=== PATIENT | male | born 1935 | race Caucasian/White ===

== ENCOUNTER → 2016-06-24 08:14 | Outpatient (CLI) | payer MEDICARE, OTHER ==
[2015-04-12 08:52] VITALS: BMI 32.3
--- NOTE | ~2016-06-24 | EC ---
PATIENT:ED RIVAS DATE OF SERVICE: 06/24/16 SEX: M MEDICAL RECORD: [id number] DATE OF : 33 LOCATION:D.RT AGE OF PATIENT: 80 ADMISSION DATE: 06/24/16 REFERRING PHYSICIAN: INTERPRETING PHYSICIAN: CORKY SINCLAIR MD ECHOCARDIOGRAM REPORT ECHO CHARGES 4 ECHO COMPLETE CLINICAL DIAGNOSIS: PULMONARY HTN/HYPERLIPIDEMIA HX OF HTN ECHOCARDIOGRAPHIC MEASUREMENTS (adult normal given) AC root (d.<3.7cm) 3.5 LV Septum d (<1.2 cm> 1.5 Valve Excursion 2.2 LV Septum (systole) 1.8 Left Atria (s.<4.0cm> 1.4 LVPW d(<1.2cm) 4.2 RV (d.<2.3cm) 4.0 LVPW (sytole) 1.7 LV diastole(<5.6CM) 5.2 MV E-F(>70mm/sec) LV systole 3.0 LVOT Diameter 1.5 MV exc.(>10mm) 1.6 Est.ejection fraction (50-75%) Pericardial Effusion N DOPPLER: LVIT A 83.0 E 103 LA RVSP 60 LVOT 120 AOP1/2T Asc. Ao 145 RVOT 97 RA PA 133 AV Gradient Peak 8.44 AV Mean 4.21 AV Area 1.3 MV Gradient Peak 7.19 MV Mean 2.22 MV Area COMMENTS: Web Development Instructor: Brandi CEDEÑO Computer Laboratory Technician:Brandi Soto TAPE# PACS DATE OF SERVICE: 06/24/2016 FINDINGS: 1. Left ventricular chamber size is within normal limits. Left ventricular systolic function is normal. Overall ejection fraction estimated at 55%. 2. Left atrium is enlarged at 4.2 cm. Right atrium and right ventricle chamber sizes are mildly dilated. 3. Valvular structures have normal structure and motion. 4. Doppler interrogation reveals mild mitral regurgitation, moderate tricuspid regurgitation, no other valvular insufficiency or stenosis. Pulmonary systolic ECHOCARDIOGRAM REPORT [id number] ED RIVAS pressure is elevated estimated 60 mmHg. 5. No evidence of pericardial effusion or left ventricular thrombus. TRANSINT:[id number] Voice Confirmation ID: [id number] DOCUMENT ID: [id number] CORKY SINCLAIR MD CC: [id number] DICTATION DATE: 06/25/16 1037 SHANK SORTER: 06/26/16 0114 DEP CLI 06/24/16 [facility] [address] [place] [address]
[~2016-06-24 08:14] MED LIST: BAYER CHEWABLE81 MG PO; KLOR-CON M2020 MEQ PO; LOZOL1.25 MG PO; TENORMIN50 MG PO; VITAMIN D2000 UNIT PO; ZYLOPRIM300 MG PO; ZYRTEC10 MG PO
== END | disposition home or self-care (01) ==
LOC: D.RT 08:14
DX: E78.5 Hyperlipidemia, unspecified (principal)

== ENCOUNTER → 2017-03-23 13:39 | Outpatient (CLI) | payer MEDICARE, OTHER ==
[2015-04-12 08:52] VITALS: BMI 32.3
== END | disposition home or self-care (01) ==
LOC: D.RAD 09:00
DX: J47.9 Bronchiectasis, uncomplicated (principal)

== ENCOUNTER → 2017-07-08 09:12 | Outpatient (CLI) | payer MEDICARE, OTHER ==
[2015-04-12 08:52] VITALS: BMI 32.3
== END | disposition home or self-care (01) ==
LOC: D.ECHO 09:12 → D.RT 11:00
DX: J84.10 Pulmonary fibrosis, unspecified (principal); I27.20 Pulmonary hypertension, unspecified

== ENCOUNTER → 2018-02-10 17:25 | Outpatient (CLI) | payer MEDICARE, OTHER ==
[2015-04-12 08:52] VITALS: BMI 32.3
[2018-02-10 18:09] LABS: INR 1.1 (0.85-1.17); PROTIME 13.7 SECONDS (11.6-15.0)
[2018-02-10 18:10] LABS: APTT 41.7 SECONDS (22.8-39.4)
[2018-02-10 18:20] LABS: CHOL - HDL RATIO 4.4 ratio (2.3-4.9); LDL-HDL RATIO 2.7 ratio (1.5-3.5)
== END | disposition home or self-care (01) ==
LOC: D.LABREF 17:25
PROVIDERS: Internal Medicine Pulmonary Disease
DX: J84.10 Pulmonary fibrosis, unspecified (principal)

== ENCOUNTER → 2018-06-09 09:09 | Outpatient (CLI) | payer MEDICARE, OTHER ==
[2015-04-12 08:52] VITALS: BMI 32.3
[2018-06-10 10:18] LABS: HEPATITIS C ANTIBODY <0.1 (0.0-0.9)
== END | disposition home or self-care (01) ==
LOC: D.LAB 09:09 → D.RAD 10:00
PROVIDERS: ATTEND Internal Medicine Pulmonary Disease
DX: J84.112 Idiopathic pulmonary fibrosis (principal)

== ENCOUNTER → 2018-09-20 10:00 | Outpatient (CLI) | payer MEDICARE, OTHER ==
[2015-04-12 08:52] VITALS: BMI 32.3
[2018-09-20 10:53] LABS: ALBUMIN 3.8 g/dL (3.4-5.0); BILIRUBIN - DIRECT 0.26 mg/dL (0.00-0.30); BILIRUBIN - INDIRECT 1.08 mg/dL (0.00-1.00); BILIRUBIN - TOTAL 1.34 mg/dL (0.2-1.3); PROTEIN - SERUM 6.8 g/dL (6.4-8.2)
== END | disposition home or self-care (01) ==
LOC: D.LAB 10:00
PROVIDERS: ATTEND Internal Medicine Pulmonary Disease
DX: J84.112 Idiopathic pulmonary fibrosis (principal)

== ENCOUNTER → 2018-10-11 11:09 | Outpatient (CLI) | payer MEDICARE, OTHER ==
[2015-04-12 08:52] VITALS: BMI 32.3
[2018-10-11 12:25] LABS: ALBUMIN 3.4 g/dL (3.4-5.0); BILIRUBIN - DIRECT 0.28 mg/dL (0.00-0.30); BILIRUBIN - INDIRECT 0.96 mg/dL (0.00-1.00); BILIRUBIN - TOTAL 1.24 mg/dL (0.2-1.3); PROTEIN - SERUM 6.5 g/dL (6.4-8.2)
== END | disposition home or self-care (01) ==
LOC: D.LAB 11:09
PROVIDERS: ATTEND Internal Medicine Pulmonary Disease
DX: J84.112 Idiopathic pulmonary fibrosis (principal)

== ENCOUNTER → 2018-10-28 09:36 | Outpatient (CLI) | payer MEDICARE, OTHER ==
[2015-04-12 08:52] VITALS: BMI 32.3
[2018-10-28 10:47] LABS: ALBUMIN 3.5 g/dL (3.4-5.0); BILIRUBIN - DIRECT 0.26 mg/dL (0.00-0.30); BILIRUBIN - INDIRECT 1.2 mg/dL (0.00-1.00); BILIRUBIN - TOTAL 1.46 mg/dL (0.2-1.3)
== END | disposition home or self-care (01) ==
LOC: D.ECHO 09:36
PROVIDERS: ATTEND Internal Medicine Pulmonary Disease
DX: I27.20 Pulmonary hypertension, unspecified (principal); J84.112 Idiopathic pulmonary fibrosis

== ENCOUNTER → 2018-11-29 12:56 | Outpatient (CLI) | payer MEDICARE, OTHER ==
[2015-04-12 08:52] VITALS: BMI 32.3
[2018-11-29 13:41] LABS: ALBUMIN 3.5 g/dL (3.4-5.0); BILIRUBIN - DIRECT 0.24 mg/dL (0.00-0.30); BILIRUBIN - INDIRECT 0.89 mg/dL (0.00-1.00); BILIRUBIN - TOTAL 1.13 mg/dL (0.2-1.3); PROTEIN - SERUM 6.8 g/dL (6.4-8.2)
== END | disposition home or self-care (01) ==
LOC: D.LAB 12:56
PROVIDERS: ATTEND Internal Medicine Pulmonary Disease
DX: J84.112 Idiopathic pulmonary fibrosis (principal)

== ENCOUNTER → 2019-01-19 11:40 | Outpatient (CLI) | payer MEDICARE, OTHER ==
[2015-04-12 08:52] VITALS: BMI 32.3
[~2019-01-19 11:40] MED LIST changes: +AZELASTINE137 MCG/0.; +BETAPACE 80 MG80 MG PO; +FLUTICASONE PRO16 GM NASAL; +PEPCID AC20 MG PO; +PROZAC20 MG PO; +ROBITUSSIN DM 110 ML PO; +SINGULAIR10 MG PO
[2019-01-19 12:17] LABS: ALBUMIN 3.6 g/dL (3.4-5.0); BILIRUBIN - DIRECT 0.32 mg/dL (0.00-0.30); BILIRUBIN - INDIRECT 0.84 mg/dL (0.00-1.00); BILIRUBIN - TOTAL 1.16 mg/dL (0.2-1.3)
== END | disposition home or self-care (01) ==
LOC: D.LAB 11:40
PROVIDERS: ATTEND Internal Medicine Pulmonary Disease
DX: J84.112 Idiopathic pulmonary fibrosis (principal)

== ENCOUNTER 2019-02-15 13:29 | Inpatient (IN) | payer MEDICARE, OTHER ==
[~2019-02-15] VITALS: Ht 170.2 cm; Wt 90.7 kg
[~2019-02-15 13:29] MED LIST changes: -AZELASTINE137 MCG/0.; -BETAPACE 80 MG80 MG PO; -FLUTICASONE PRO16 GM NASAL; -PEPCID AC20 MG PO; -PROZAC20 MG PO; -ROBITUSSIN DM 110 ML PO; -SINGULAIR10 MG PO
[2019-02-15 14:45] LABS: APPEARANCE CLEAR (CLEAR); BILIRUBIN NEGATIVE (NEGATIVE); COLOR YELLOW (YELLOW); GLUCOSE NEGATIVE (NEGATIVE); KETONE NEGATIVE (NEGATIVE); NITRITE NEGATIVE (NEGATIVE); PROTEIN TRACE mg/dL (NEGATIVE); SPECIFIC GRAVITY 1.015 (1.005-1.020); UROBILINOGEN NORMAL (NORMAL)
[2019-02-15 14:47] LABS: BACTERIA FEW /hpf (NEGATIVE); EPITHELIAL CELLS OCC /hpf (0-5); RED CELLS - URINE RARE /hpf (0-5); WHITE CELLS - URINE NSEEN /hpf (NEGATIVE)
[2019-02-15 14:49] LABS: BASOPHILS 0.3 % (0-2); EOSINOPHILS 2.5 % (0-7); HEMATOCRIT 47.9 % (42.0-54.0); HEMOGLOBIN 16.2 g/dL (13.5-17.5); IMMATURE GRANULOCYTES 0.2 % (0-5); LYMPHOCYTES 12.8 % (15-50); MCHC 33.8 g/dL (31.0-37.0); MCV 100.6 fL (80.0-100.0); MEAN PLATELET VOLUME 11.7 fL (7.4-10.4); MONOCYTES 7.8 % (2-11); NEUTROPHILS 76.4 % (40-80); PLATELET COUNT 127 10x3/uL (130-400); RBC 4.76 10x6/uL (4.20-6.10); RDW 13.2 % (11.5-14.5); WBC 11.3 10x3/uL (4.8-10.8)
[2019-02-15 14:59] LABS: APTT 38.1 SECONDS (22.8-39.4); INR 1.49 (0.85-1.17); PROTIME 17.4 SECONDS (11.6-15.0)
[2019-02-15 15:11] LABS: CALC OSMOLALITY 295 mosm/kg (275-300); CARBON DIOXIDE 25.3 mmol/L (21.0-32.0); CHLORIDE - SERUM 109 mmol/L (98-107); CREATININE - SERUM 1.4 mg/dL (0.6-1.3); GLUCOSE 128 mg/dL (74-106); POTASSIUM - SERUM 3.7 mmol/L (3.5-5.1); SODIUM 146 mmol/L (136-145); UREA NITROGEN 22 mg/dL (7-18); eGFR NON AFRICAN AMERICAN 51 mL/min (90-120)
[2019-02-15 15:26] LABS: ALBUMIN 3.4 g/dL (3.4-5.0); ALKALINE PHOSPHATASE 80 U/L (46-116); ALT (SGPT) 34 U/L (10-68); BILIRUBIN - TOTAL 1.34 mg/dL (0.2-1.3); CKMB 0.9 U/L (0.0-3.6); CREATINE KINASE 48 UL (21-232); PROTEIN - SERUM 6.9 g/dL (6.4-8.2); TROPONIN-I < 0.017 ng/mL (0.000-0.060)
--- NOTE | 2019-02-15 16:23 | NUR ---
WOUND CLEANSED WITH WOUND ABSTRACT MANAGER. PLACED BANDAID OVER OPEN SCRAP TO RIGHT SIDE OF FACE.
--- NOTE | 2019-02-15 16:30 | NUR ---
RECEIVED TO ROOM 2225 VIA WC FROM ER. A/O X3. AT BEDSIDE. SKIN INTACT WITHOUT REDNESS EXCEPT ABRASION TO RIGHT SIDE OF FACE. DENIES NEEDS.
[2019-02-15] MEDS ORDERED: PEPCID AC20 MG PO (16:45)
[2019-02-15] MEDS ORDERED: BETAPACE 80 MG80 MG PO (16:46)
[2019-02-15] MEDS ORDERED: PROZAC20 MG PO (16:47)
[2019-02-15] MEDS ORDERED: FLUTICASONE PRO16 GM NASAL (16:48)
[2019-02-15] MEDS ORDERED: AZELASTINE137 MCG/0. (16:48)
[2019-02-15] MEDS ORDERED: SINGULAIR10 MG PO (16:49)
[2019-02-15] MEDS ORDERED: ROBITUSSIN DM 110 ML PO (16:49)
--- NOTE | 2019-02-15 17:59 | MORECARE ---
CASE MANAGEMENT DISCHARGE SUMMARY PATIENT: ED CLARK UNIT: [id number] ADM DATE: 02/15/19 AGE: 83 : 34 SEX: M ROOM/BED: D.2225 AUTHOR: CUONG,DOC PHYSICIAN: REFERRING PHYSICIAN: ISIDRO MAYBERRY MD DATE OF SERVICE: 02/15/19 Discharge Plan Patient Name: ED CLARK Facility: [facility]:[place] : 1935 Planned Disposition: Home Anticipated Discharge Date: 02/17/19 Discharge Date: Expected LOS: 2 Initial Reviewer: [email or web address] Initial Review Date: 02/15/2019 Generated: 02/15/19 6:59 pm DCP- Discharge Planning Updated by [email or web address]: Niki Antonio on 02/15/19 4:[address] DC PLAN: Return home with . ANTICIPATED DC NEEDS: Denied need for hh or other services. CM met with patient to complete initial dc planning assessment. CM educated patient on the CM role and verbal consent given by patient to complete assessment. CM verified patient's address, phone number, and emergency contact phone numbers. Patient lives at home with his . At discharge patient plans to return home and feels this is a safe discharge. He reports he is independent in his care at home. CM discussed availability of home health, rehab services, and medical equipment. Patient denied known discharge needs at this time. Transportation provider at discharge will be his . CM will continue to follow and will assist as needed with dc plans/needs. Niki Antonio RN, [facility] DCPIA - Discharge Planning Initial Assessment Updated by [email or web address]: Niki Antonio on 02/15/19 5:55 pm * Is the patient Alert and Oriented? Yes * How many steps to enter\exit or inside your home? None * PCP Dr. Jacques * [facility] * Preadmission Environment Home with Family * ADLs Independent * Equipment CPAP Oxygen * Other Equipment Oxygen with portability. Wears PRN. DME provider is [facility] * List name and contact numbers for known caregivers / representatives who currently or will assist patient after discharge: Lyndsay Clark - - [phone] * Verbal permission to speak to the caregivers and representatives has been obtained from the patient. Yes * Community resources currently utilized None * Additional services required to return to the preadmission environment? No * Can the patient safely return to the preadmission environment? Yes * Has this patient been hospitalized within the prior 30 days at any hospital? No Patient Name: ED CLARK Page [id number] at 1759 All edits/amendments must be made on the electronic document DICTATION DATE: 02/15/191757 PRODUCTION SCHEDULER: LUIS ENRIQUE 02/15/191757 RPT#: [id number] DC DATE: STATUS: ADM IN [facility] [address] [place] [address] END OF REPORT
--- NOTE | 2019-02-15 18:32 | NUR ---
REFUSED SUPPER TRAY. DOESN'T LIKE PASTA. REMAINS AT BEDSIDE. DENIES NEEDS. NO CHANGES NOTED.
--- NOTE | 2019-02-15 20:00 | NUR ---
ASSESSMENT PER FLOWSHEET. SALINE LOCK TO LEFT HAND. AT BEDSIDE. ALERT/ORIENTED X4 RIDER. DURAL MECHANIC EQUAL. SPEECH CLEAR. AND APPROPRIATE. ABRASION TO RT SIDE OF FACE. WITH LARGE BANDAIDE IN PLACE. DENIES NEEDS SR UP X2 CALL LIGHT WITHIN REACH.
[2019-02-15 21:15] VITALS: BP 131/67
--- NOTE | 2019-02-15 22:00 | NUR ---
AL SOLIS ON FLOOR INFORMED HIM OF PATIENT'S ADMISSION.AND HIS HOME MEDS.
--- NOTE | 2019-02-16 | NUR ---
REMAINS ALERT/ORIENTED X4 O2 ON 2L/M PER NC. ARACELIS MAT IN USE WITH ALARMS ON.
[2019-02-16 01:04] VITALS: BP 122/67
--- NOTE | 2019-02-16 03:48 | NUR ---
1000CC'S D5W HUNG ORDERED AT 50 CC'S/HR. ORDERS FROM AL AIR DRIER REC'D
--- NOTE | 2019-02-16 05:34 | NUR ---
EYES CLOSED RESPIRATIONS WITH EASE AND UNLABORED.
[2019-02-16 05:50] VITALS: BP 110/54
[2019-02-16 06:33] LABS: BASOPHILS 0 % (0-2); EOSINOPHILS 0.2 % (0-7); HEMATOCRIT 46.3 % (42.0-54.0); HEMOGLOBIN 15.7 g/dL (13.5-17.5); IMMATURE GRANULOCYTES 0.2 % (0-5); LYMPHOCYTES 12.3 % (15-50); MCH 34.1 pg (26.0-34.0); MCHC 33.9 g/dL (31.0-37.0); MCV 100.4 fL (80.0-100.0); MONOCYTES 1.8 % (2-11); NEUTROPHILS 85.5 % (40-80); PLATELET COUNT 112 10x3/uL (130-400); RBC 4.61 10x6/uL (4.20-6.10); RDW 13.1 % (11.5-14.5)
[2019-02-16 06:42] LABS: WBC 6.6 10x3/uL (4.8-10.8)
[2019-02-16 07:57] LABS: ALBUMIN 3.2 g/dL (3.4-5.0); ANION GAP 16.3 mmol/L (8-16); BILIRUBIN - TOTAL 1.49 mg/dL (0.2-1.3); CALCIUM 8.9 mg/dL (8.5-10.1); CARBON DIOXIDE 24.5 mmol/L (21.0-32.0); CREATININE - SERUM 1.3 mg/dL (0.6-1.3); MAGNESIUM - SERUM 1.6 mg/dL (1.8-2.4); PHOSPHOROUS 4.4 mg/dL (2.5-4.9); POTASSIUM - SERUM 3.8 mmol/L (3.5-5.1); PROTEIN - SERUM 6.7 g/dL (6.4-8.2); THYROID STIMULATING HORMONE 0.52 uIU/mL (0.36-3.74)
[2019-02-16 08:11] VITALS: BP 115/63
--- NOTE | 2019-02-16 09:06 | NUR ---
RESTING IN BED, NO DISTRESS NOTED, BANDAID TO RIGHT CHEEK, NO C/O SYNCOPE THIS AM, IV INFUSING, CONT TO MONITOR
[2019-02-16 10:56] VITALS: Ht 170.2 cm; Wt 90.7 kg
[2019-02-16 12:15] VITALS: BP 118/61
[2019-02-16 16:09] VITALS: BP 128/64
--- NOTE | 2019-02-16 18:46 | NUR ---
1840 IV REMOVED, TAKEN FROM HOSPITAL PER W/C, NO DISTRESS NOTED, HOME O2 IN PLACE
--- NOTE | 2019-02-20 16:23 | MORECARE ---
CASE MANAGEMENT DISCHARGE SUMMARY PATIENT: ED CLARK UNIT: [id number] ADM DATE: 02/15/19 AGE: 83 : 34 SEX: M ROOM/BED: D.2225 AUTHOR: CUONG,DOC PHYSICIAN: REFERRING PHYSICIAN: ISIDRO MAYBERRY MD DATE OF SERVICE: 02/20/19 Discharge Plan Patient Name: ED CLARK Facility: [facility]:[place] : 1935 Planned Disposition: Home Anticipated Discharge Date: 02/17/19 Discharge Date: 02/16/2019 Expected LOS: 2 Initial Reviewer: [email or web address] Initial Review Date: 02/15/2019 Generated: 02/20/19 5:23 pm DCP- Discharge Planning Updated by [email or web address]: Niki Antonio on 02/15/19 4:[address] DC PLAN: Return home with . ANTICIPATED DC NEEDS: Denied need for hh or other services. CM met with patient to complete initial dc planning assessment. CM educated patient on the CM role and verbal consent given by patient to complete assessment. CM verified patient's address, phone number, and emergency contact phone numbers. Patient lives at home with his . At discharge patient plans to return home and feels this is a safe discharge. He reports he is independent in his care at home. CM discussed availability of home health, rehab services, and medical equipment. Patient denied known discharge needs at this time. Transportation provider at discharge will be his . CM will continue to follow and will assist as needed with dc plans/needs. Niki Antonio RN, [facility] DCPIA - Discharge Planning Initial Assessment Updated by [email or web address]: Niki Antonio on 02/15/19 5:55 pm * Is the patient Alert and Oriented? Yes * How many steps to enter\exit or inside your home? None * PCP Dr. Jacques * [facility] * Preadmission Environment Home with Family * ADLs Independent * Equipment CPAP Oxygen * Other Equipment Oxygen with portability. Wears PRN. DME provider is [facility] [employer] [place] [facility] * List name and contact numbers for known caregivers / representatives who currently or will assist patient after discharge: Lyndsay Clark - - [phone] * Verbal permission to speak to the caregivers and representatives has been obtained from the patient. Yes * Community resources currently utilized None * Additional services required to return to the preadmission environment? No * Can the patient safely return to the preadmission environment? Yes * Has this patient been hospitalized within the prior 30 days at any hospital? No Last DP export: 02/15/19 4:59 p Patient Name: ED CLARK Page 30738 at 1623 All edits/amendments must be made on the electronic document DICTATION DATE: 02/20/191621 AMMONIA SOLUTION PREPARER: LUIS ENRIQUE 02/20/19 1622 RPT#: [id number] DC DATE:02/16/19 STATUS: DIS IN [facility] [address] [place] [address] END OF REPORT
--- NOTE | 2019-02-24 10:39 | EC ---
PATIENT:ED RIVAS DATE OF SERVICE: 02/15/19 SEX: M MEDICAL RECORD: [id number] DATE OF : 34 LOCATION:D.MS Coulter222 AGE OF PATIENT: 83 ADMISSION DATE: 02/15/19 REFERRING PHYSICIAN: INTERPRETING PHYSICIAN: CORKY WHATLEY MD ECHOCARDIOGRAM REPORT ECHO CHARGES 4 ECHO COMPLETE Date: 02/16/19 CLINICAL DIAGNOSIS: HTN ECHOCARDIOGRAPHIC MEASUREMENTS (adult normal given) AC root (d.<3.7cm) 3.3 cm LV Septum d (<1.2 cm> 1.5 cm Valve Excursion 2.2 cm LV Septum (systole) 1.8 cm Left Atria (s.<4.0cm> 4.3 cm LVPW d(<1.2cm) 1.1 cm RV (d.<2.3cm) 3.4 cm LVPW (sytole) 1.9 cm LV diastole(<5.6CM) 4.3 cm MV E-F(>70mm/sec) cm LV systole 2.4 cm LVOT Diameter 1.8 cm MV exc.(>10mm) cm Est.ejection fraction (50-75%) % DOPPLER: LVIT cm/sec A 101 cm/sec E 59.0 cm/sec LA cm/sec RVSP 39.1 mmHg LVOT 119 cm/sec AOP1/2T m/s Asc. Ao 147 cm/sec RVOT 47.0 cm/sec RA cm/sec PA 90.0 cm/sec AV Gradient Peak 8.6 mmHg AV Mean 3.6 mmHg AV Area 2.1 cm MV Gradient Peak 5.4 mmHg MV Mean 1.7 mmHg MV Area cm COMMENTS: Montessori Toddler Teacher: Francia NGUYỄNOE Journeyman Machinist: 1 Dr. Whatley TAPE# PACS Pericardial Effusion N DATE OF SERVICE: 02/16/2019 FINDINGS: 1. Left ventricular chamber size is within normal limits. Left ventricular systolic function is mildly reduced at 40%. 2. Left atrium is enlarged at 4.3 cm. Right atrium and right ventricular chamber sizes are as well mildly dilated. 3. Valvular structures have normal structure and motion. 4. Doppler interrogation reveals trace mitral regurgitation, mild tricuspid regurgitation, no other valvular insufficiency or stenosis. ECHOCARDIOGRAM REPORT [id number] ED RIVAS 5. No evidence of pericardial effusion or left ventricular thrombus. TRANSINT:[id number] Voice Confirmation ID: [id number] DOCUMENT ID: [id number] CORKY WHATLEY MD at 1039 CC: [id number] DICTATION DATE: 02/16/19 [address] [place] HISTORY PROFESSOR: 02/16/19 2337 DIS IN 02/16/19 [place] [id number] [place] [id number]
== END 2019-02-16 18:45 | disposition home or self-care (01) | DRG 86 ==
LOC: D.ER 13:29 → D.MS 14:47
PROVIDERS: Family Medicine; ADMIT Internal Medicine Nephrology; ATTEND Internal Medicine Nephrology
DX: S06.6X0A Traumatic subarachnoid hemorrhage without loss of consciousness, initial encounter (principal); N17.9 Acute kidney failure, unspecified; R55 Syncope and collapse; W19.XXXA Unspecified fall, initial encounter; D75.89 Other specified diseases of blood and blood-forming organs; E80.6 Other disorders of bilirubin metabolism; J84.10 Pulmonary fibrosis, unspecified; Z99.81 Dependence on supplemental oxygen; I10 Essential (primary) hypertension; M10.9 Gout, unspecified; I34.0 Nonrheumatic mitral (valve) insufficiency; I27.20 Pulmonary hypertension, unspecified

== ENCOUNTER 2019-03-29 10:36 | Outpatient (CLI) | payer MEDICARE, OTHER ==
[~2019-03-29] VITALS: Ht 170.2 cm; Wt 86.4 kg
--- NOTE | ~2019-03-29 | HEMODYNAMI ---
PATIENT:ED RIVAS MEDICAL RECORD: [id number] : 33 LOCATION:DKUNAL ADMISSION DATE: 03/29/19 Generatedon:03/29/201912:39 Patient name: ED RIVAS Patient #: [id number] SSN: DO B: 1935 Date of study: 03/29/2019 Page: Of Hemodynamic Procedure Report Patient Data Patient Demographics Procedure consent was obtained First Name: ED Gender: Male Last Name: ROB : 1935 [facility] Initial: TOM Age: 83 year(s) Patient #: [id number] Race: Unknown Additional ID: [id number] Contact details Address: [address] [place] [address] State: [place] City: [place] Zip code: [address] Past Medical History Allergies: No known allergies Admission Admission Data Admission Date: 03/29/2019 Admission Time: 10:36 Height (in.): 67 BSA: 1.99 (m2) Height (cm.): 170.18 BMI: 30.23 (kg/m2) Weight (lbs.): 193 Weight (kg.): 87.54 Procedure Procedure Types Cath Procedure Diagnostic Procedure PPM/ICD Loop Recorder Implant Procedure Description Procedure Date Procedure Date: 03/29/2019 Procedure Start Time: 12:27 Procedure End Time: 12:36 Procedure Staff Name Function Luis Matias MD Performing Physician Janette Jones RN Nurse Phuong Perez RT Monitor Ada Maurer RT Scrub Procedure Data Cath Procedure Fluoroscopy Diagnostic fluoroscopy Total fluoroscopy Time: 0 time: 0 min min Diagnostic fluoroscopy Total fluoroscopy dose: 0 dose: 0 mGy mGy Estimated blood loss: 5 ml Procedure Complications No complications Procedure Medications Medication Administration Route Dosage 0.9% NaCl I.V. 50 ml/hr Oxygen etCO2 Nasal cannula 2 l/min Lidocaine 2% added to field 20 Ancef (1Gm/50ml NS) I.V.P.B 1 g Versed I.V. 2 mg Fentanyl I.V. 50 mcg Hemodynamics Rest BSA: 1.99 (m2) O2 Consumption: Estimated: 212.12 (ml/min) O2 Consumption indexed : Estimated:106.59 (ml/min/m) Heart Rate: 51 (bpm) Snapshots Pre Cath Intra NCS Post Cath Vital Signs Time Heart Resp SPO2 etCO2 NIBP (mmHg) Rhythm Pain Sedation Rate (ipm) (%) (mmHg) Status Level (bpm) 12:19:48 57 20 96 16.5 148/94(122) SB 0 (11) 10(A) , No pain 12:24:21 55 25 95 28.6 145/75(110) SB 0 (11) 10(A) , No pain 12:28:43 55 18 96 31.6 112/70(95) SB 0 (11) 10(A) , No pain 12:33:03 52 22 96 32.4 111/69(91) SB 0 (11) 10(A) , No pain Medications Time Medication Route Dose Verified Delivered Reason Notes Effectiv eness by by 12:18:40 0.9% NaCl I.V. 50 Luis Savage used for ml/hr [facility] procedure MD SWIFT 12:18:48 Oxygen etCO2 2 Luis Savage used for Nasal l/min [facility] procedure cannula MD SWIFT 12:18:52 Lidocaine added 20ml Luis Smith for local 2% to vial [facility] anesthetic field MD HERNADEZ 12:19:01 Ancef I.V.P.B 1 g Luis Smith used for (1Gm/50ml [facility] procedure NS) MD HERNADEZ 12:24:51 Versed I.V. 2 mg Luis Savage [address] [facility] sedation MD SWIFT 12:24:55 Fentanyl I.V. [address] Luis Savage [address] mcg [facility] sedation MD SWIFTmanufacturing design engineer Log Time Note 12:05:23 Janette Jones RN sent for patient. Start room use. 12:05:25 Procedure Status Elective Heart Cath (OP). 12:05:26 Time tracking: Regular hours (M-F 7:00 - 5:00) 12:05:29 Plan of Care:Hemodynamics will remain stable., Cardiac rhythm will remain stable., Comfort level will be maintained., Respiratory function will remain adequate., Patient/ family verbilizes understanding of procedure., Procedure tolerated without complication., Recovers from procedure without complications.. 12:05:37 H&P Date Dictated: 03/21/2019 Within 30 days and on chart., H&P Addendum completed by physician on day of procedure. (MUST COMPLETE FOR ALL OUTPATIENTS). 12:07:24 Medtronic Linq Loop Recorder opened to sterile field. 12:08:12 Patient allergic to No known allergies 12:10:24 Patient Weight : 193 lbs 12:10:30 Patient Height : 67 inches 12:11:46 Patient arrived from Pre/Post Procedure Room to [facility] 1. Patient remains on bed/stretcher for procedure. 12:11:48 Signed procedure consent form obtained from patient. 12:11:50 Warm blankets applied, and fannie hugger turned on for patient comfort. 12:11:51 Correct patient and procedure confirmed by team. 12:11:52 ECG and BP/O2 sat monitors applied to patient. 12:18:29 Vital chart was started 12:18:33 Pre-procedure instructions explained to patient. 12:18:34 Pre-op teaching completed and patient verbalized understanding. 12:18:35 Family in patients room. 12:18:36 Patient NPO since Midnight. 12:18:40 0.9% NaCl 50 ml/hr I.V. was administered by Janette Jones RN; used for procedure; Verbal order read back and verified. 12:18:46 Is the patient allergic to Iodine/contrast media? No. 12:18:48 Oxygen 2 l/min etCO2 Nasal cannula was administered by Janette Jones RN; used for procedure; Verbal order read back and verified. 12:18:52 Lidocaine 2% 20ml vial added to field was administered by Luis Matias MD; for local anesthetic; Verbal order read back and verified. 12:18:52 Is patient on blood thinner?No 12:18:54 Patient diabetic? No. 12:18:59 Previous problem with sedation/anesthesia? No ? 12:19:01 Ancef (1Gm/50ml NS) 1 g I.V.P.B was administered by Luis Matias MD; used for procedure; Verbal order read back and verified. 12:19:01 Snore? Yes 12:19:02 Sleep apnea? Yes 12:19:03 Deviated septum? No 12:19:11 Opens mouth fully? Yes 12:19:13 Sticks out tongue? Yes 12:19:17 Airway obstruction? No ? 12:19:20 Dentures? No ? 12:19:30 IV patent on arrival in right antecubital with 0.9% NaCl at [facility]. 12:20:00 Mid Chest area was prepped with chlora-prep and draped in sterile fashion 12:20:01 Alarms reviewed by R. N. 12:20:02 Sharps counted by scrub and verified by R.N. 12:20:46 Baseline sample Acquired. 12:20:50 Rhythm: sinus bradycardia 12::52 Full Disclosure recording started 12::38 [employer] billing representative LASHAE CHAVARRIA present for procedure. 12::48 --------ALL STOP TIME OUT------ 12::49 Final Timeout: patient, procedure, and site verified with staff and physician. All members of the team are in agreement. 12::53 Mid Chest site verified by team. 12:23:12 Fire Safety Assessment: A--An alcohol-based skin anteseptic being used preoperatively., B--The operative or invasive procedure is being performed above the xiphoid process or in the oropharynx., C--Open oxygen or nitrous oxide is being used. 12:23:15 Physical assessment completed. ASA score P 2 - A patient with mild systemic disease as per Luis Matias MD. 12:23:17 Sedation plan: IV Moderate Sedation Medication:Versed, Fentanyl 12:24:51 Versed 2 mg I.V. was administered by Janette Jones RN; for sedation; Verbal order read back and verified. 12:24:55 Fentanyl 50 mcg I.V. was administered by Janette Jones RN; for sedation; Verbal order read back and verified. 12:25:18 Procedure started. 12:27:03 Lidocaine 2% was administered to mid chest by Luis Matias MD . 12:29:21 Incision made to mid chest. 12:30:35 Linq was inserted subcutaneously to mid chest. 12:32:09 Procedure ended.(Physican Out) 12:33:38 STERI- STRIP USED FOR SKIN CLOSURE 12:33:48 Mid Chest incision was dressed with Mepilex dressing. 12:34:21 Fluoroscopy time 00.00 minutes. 12:34:22 Fluoroscopy dose: 0 mGy 12:34:22 Flurop Dose total: 0 12:34:34 Post-procedure physical assessment completed. ASA score P 2 - A patient with mild systemic disease as per Luis Matias MD. 12:34:39 Post procedure rhythm: unchanged. 12:34:42 Estimated blood loss: 5 ml 12:34:44 Post procedure instruction explained to patient.Patient verbalizes understanding. 12:34:45 Patient needs reinforcement of post procedure teaching. 12:35:16 Mepilex Dressing ([id number]) opened to sterile field. 12:35:31 Procedure and supply charges have been captured, reviewed, submitted and are correct. 12:35:33 Procedure Complication : No complications 12:36:21 Vital chart was stopped 12:36:23 Operative report dictated upon procedure completion. 12:36:24 See physician's report for complete and final results. 12:36:25 Report given to Pre/Post Procedure Room. 12:36:29 Patient transfered to Pre/Post Procedure Room with Bed. 12:36:31 Procedure ended. 12:36:31 Full Disclosure recording stopped 12:37:03 End room use (Document Last) 12:37:14 End room use (Document Last) 12:38:00 End room use (Document Last) Device Usage Item Name Manufacture Quantity Catalog Hospital Part Current Minimal Lot# / Number Charge Number Stock Stock Serial# Code Medtronic Medtronic 1 [id number] 5 [id number] Linq Loop EXP: Recorder 2019 Mepilex Cardinal 1 [id number] 5 [facility] ([id number]) Signature Audit [place] Stage Time Signature Unsigned Intra-Procedure 03/29/2019 Phuong Perez 12:37:14 PM RT(R) Intra-Procedure 03/29/2019 Janette Jones 12:38:00 PM RN Intra-Procedure 03/29/2019 Luis Collazo 12:39:18 PM Nickolas [place] [id number] [place] [id number]
[~2019-03-29 10:36] MED LIST changes: +AZELASTINE137 MCG/0.; +BETAPACE 80 MG80 MG PO; +FLUTICASONE PRO16 GM NASAL; +PEPCID AC20 MG PO; +PROZAC20 MG PO; +ROBITUSSIN DM 110 ML PO; +SINGULAIR10 MG PO
[2019-03-29] MEDS ORDERED: ALBUTEROL SULF8.5 GM (10:54)
[2019-03-29 11:08] VITALS: BP 140/83; Ht 170.2 cm; Wt 86.4 kg
--- NOTE | 2019-03-29 12:45 | NUR ---
PT RECEVIED VIA STRETCHER FROM RF MANAGER POST LINQ PLACEMENT. PT AWAKE SLIGHTLY DROWSY BUT ALERT. PT DENIES PAIN OR DISCOMFORT. IV PATENT INFUSING VIA ORDERS. PT PLACED ON CARDIAC MONITORS, HR NSR RATE 60, BP 125/69, RR 20. O2 ON VIA NC AT 3L. PT W SMALL MEDIPLEX DRESSING TO U L CHEST. NO BLEEDING OR SWELLING NOTED. CALL LIGHT IN REACH.
--- NOTE | 2019-03-29 13:15 | NUR ---
PT RESTING COMFORTABLY, DENIES PAIN OR NEEDS. SANDWICH TRAY AND DRINK SERVED. DRESSING TO L CHEST CDI NO BLEEDING OR SWELLING NOTED. HR 59, BP 133/94, SAT 94 ON 3L/NC. CALL LIGHT IN REACH. PTS RIDE CALLED PER REQUEST.
--- NOTE | 2019-03-29 13:48 | NUR ---
DISCHARGE INSTRUCTIONS REVIEWED W PT, HE VERBALIZED UNDERSTANDING. IV REMOVED W CATH INTACT, COBAN APPLIED FOR PRESSURE. MONITORS AND O2 REMOVED AND PT UP TO DRESS FOR DISCHARGE. DRESSING TO U CHEST REMAINS CDI.
--- NOTE | 2019-03-31 13:25 | OP ---
PATIENT NAME: ED RIVAS MEDICAL RECORD: [id number] :34 LOCATION:D.CAT ADMISSION DATE: SURGEON: TOMER TRAVIS MD DATE OF OPERATION: 03/29/2019 PROCEDURE: LINQ implant. INDICATION: Unexplained syncope with negative noninvasive workup. DESCRIPTION OF PROCEDURE: After skin was anesthetized with local lidocaine, the skin incision was made with the existing scalpel and blunt dissection was taken down to ensure adequate deployment of LINQ device itself. LINQ device was then placed in the typical fashion and the skin was closed with Steri-Strips. IMPRESSION: Successful LINQ implantation. COMPLICATIONS: None. DISPOSITION: To the floor, stable. The wound was closed with Steri-Strips. TRANSINT:[id number] Voice Confirmation ID: [id number] DOCUMENT ID: [id number] TOMER TRAVIS MD at 1325 CC: [id number] DICTATION DATE: 03/29/19 1232 COMPUTER ENGINEERING TECHNICIAN: 03/29/19 1438 DEP CLI 03/29/19 [place] [id number] [place] [address]
== END 2019-03-29 13:50 | disposition home or self-care (01) ==
LOC: D.CATH 10:36
PROVIDERS: ATTEND Internal Medicine Interventional Cardiology
DX: R55 Syncope and collapse (principal); I27.20 Pulmonary hypertension, unspecified; E78.5 Hyperlipidemia, unspecified; E11.9 Type 2 diabetes mellitus without complications; I10 Essential (primary) hypertension; J84.112 Idiopathic pulmonary fibrosis; I47.1 Supraventricular tachycardia; Z72.0 Tobacco use

== ENCOUNTER → 2019-04-08 10:16 | Outpatient (CLI) | payer MEDICARE, OTHER ==
[2019-03-29 11:08] VITALS: BMI 29.8
[~2019-04-08 10:16] MED LIST changes: +ALBUTEROL SULF8.5 GM; +AZELASTINE137 MCG/0. NASAL
[2019-04-08 11:22] LABS: ALBUMIN 3.3 g/dL (3.4-5.0); BILIRUBIN - DIRECT 0.23 mg/dL (0.00-0.30); BILIRUBIN - INDIRECT 0.82 mg/dL (0.00-1.00); BILIRUBIN - TOTAL 1.05 mg/dL (0.2-1.3)
== END | disposition home or self-care (01) ==
LOC: D.LAB 10:16 → D.RT 11:00
PROVIDERS: ATTEND Internal Medicine Pulmonary Disease
DX: J84.112 Idiopathic pulmonary fibrosis (principal)

== ENCOUNTER 2019-04-28 17:33 | Inpatient (IN) | payer MEDICARE, OTHER ==
[~2019-04-28] VITALS: Ht 170.2 cm; Wt 86.2 kg
[~2019-04-28 17:33] MED LIST changes: +ATROVENT 0.02%2.5 ML UPD; +BACTRIM DS PO; +BROVANA15 MCG/2 M INH; +FEXOFENADINE HC60 MG PO; +PREDNISONE20 MG PO; +PULMICORT0.5 MG/21 UPD; +SOLU-MEDRO40 MG/1 M1 IV; +Xopenex 0.63 MG INH UPD
--- NOTE | 2019-04-28 20:00 | NUR ---
PATIENT RECEIVED SITTING UP IN BED. NO C/O PAIN OR DISTRESS. NO C/O PAIN OR DISTRESS. CALL LIOGHT WITHIN REACH. WILL CONTINUE TO MONITOR.
[2019-04-28 21:42] VITALS: BP 125/58; BMI 29.8
[2019-04-28 22:13] VITALS: BP 102/39
--- NOTE | 2019-04-29 04:04 | NUR ---
PATIENT EYES CLOSED. RESPIRATIONS 18 & EVEN. BED LOW. ALARM ON. CALL LIGHT WITHIN REACH. WILL CONTINUE TO MONITOR.
[2019-04-29 08:52] LABS: ANION GAP 9.7 mmol/L (8-16); CALCIUM 8.3 mg/dL (8.5-10.1); CARBON DIOXIDE 29.9 mmol/L (21.0-32.0); CREATININE - SERUM 1.1 mg/dL (0.6-1.3); POTASSIUM - SERUM 4.6 mmol/L (3.5-5.1)
[2019-04-29 08:55] LABS: BASOPHILS 0.1 % (0-2); EOSINOPHILS 0.1 % (0-7); HEMATOCRIT 46.1 % (42.0-54.0); HEMOGLOBIN 15.6 g/dL (13.5-17.5); IMMATURE GRANULOCYTES 0.6 % (0-5); LYMPHOCYTES 4.9 % (15-50); MCH 33.2 pg (26.0-34.0); MCHC 33.8 g/dL (31.0-37.0); MCV 98.1 fL (80.0-100.0); MONOCYTES 1.8 % (2-11); NEUTROPHILS 92.5 % (40-80); PLATELET COUNT 92 10x3/uL (130-400); RDW 13.1 % (11.5-14.5); WBC 16.4 10x3/uL (4.8-10.8)
[2019-04-29 09:41] VITALS: BP 132/69
[2019-04-29 12:33] LABS: PLATELET ESTIMATE DECREASED
[2019-04-29 13:47] VITALS: Ht 170.2 cm; Wt 86.2 kg
--- NOTE | 2019-04-29 19:15 | NUR ---
PT RESTING IN BED WITH EYES OPEN. ALERT AND ORIENTED X 3. DENIES ACUTE PAIN OR DISCOMFORT AT THIS TIME. PT VOICED COMPLAINT OF HIS BRIEF BEING WET AND NEEDING CHANGED. IZAIAH CARE AND PAD CHANGE DONE. O2 IS ON @ 4LPM PER NC. NO SOB NOTED. SR'S ARE UP X 2 IN BED. CALL LIGHT AND BEDSIDE TABLE ARE WITHIN EASY REACH.
--- NOTE | 2019-04-29 22:02 | NUR ---
PT RESTING IN BED WITH EYES CLOSED. NO DISTRESS NOTED.
[2019-04-29 22:47] VITALS: BP 128/50
--- NOTE | 2019-04-29 23:49 | NUR ---
PT RESTING IN BED WITH EYES CLOSED.
--- NOTE | 2019-04-30 02:35 | NUR ---
I have reviewed this patient and I concur with the Shift Assessment completed by the Licensed Practical Nurse today this shift.
--- NOTE | 2019-04-30 04:33 | NUR ---
PT SPILLED HIS URINAL IN THE BED. IZAIAH CARE AND LINEN CHANGE DONE.
[2019-04-30 08:00] VITALS: BP 127/75
--- NOTE | 2019-04-30 11:50 | NUR ---
LAYING IN BED BED RESTING QUIETLY. DENIES NEEDS OR C/O. CALL LIGHT IN REACH
--- NOTE | 2019-04-30 19:26 | NUR ---
PT IS RESTING IN BED WITH EYES OPEN. ALERT AND ORIENTED X 3. DENIES ANY PAIN OR DISCOMFORT AT THIS TIME. NO NEEDS VOICED. O2 IS ON @ 4LPM PER HIGH FLOW CANNULA. NO SOB NOTED. SR'S ARE UP X 2 IN BED. CALL LIGHT AND BEDSIDE TABLE ARE WITHIN EASY REACH.
[2019-04-30 20:30] VITALS: BP 131/68
--- NOTE | 2019-04-30 22:06 | NUR ---
PT IS RESTING QUIETLY IN BED WITH EYES CLOSED. NO ACUTE DISTRESS NOTED.
--- NOTE | 2019-05-01 00:42 | NUR ---
I have reviewed this patient and I concur with the Shift Assessment completed by the Licensed Practical Nurse today this shift.
--- NOTE | 2019-05-01 03:19 | NUR ---
RESTING QUIETLY IN BED WITH EYES CLOSED. NO ACUTE DISTRESS NOTED.
--- NOTE | 2019-05-01 06:35 | NUR ---
RESTING IN BED WITH EYES CLOSED. NO ACUTE DISTRESS NOTED.
[2019-05-01 08:00] VITALS: BP 108/73
--- NOTE | 2019-05-01 12:40 | NUR ---
SITTING UP IN BED EATING LUNCH. DENIES PAIN OR NEEDS CALL LIGHT IN REACH
--- NOTE | 2019-05-01 19:37 | NUR ---
PT IS RESTING IN BED WITH EYES OPEN. ALERT AND ORIENTED X 3. DENIES ACUTE PAIN OR DISCOMFORT AT THIS TIME. NO NEEDS VOICED. SR'S ARE UP X 2 IN BED. CALL LIGHT AND BEDSIDE TABLE ARE WITHIN EASY REACH.
[2019-05-01 20:00] VITALS: BP 102/73
--- NOTE | 2019-05-01 22:57 | NUR ---
PT RESTING QUIETLY IN BED WITH EYES CLOSED.
--- NOTE | 2019-05-02 00:49 | NUR ---
I have reviewed this patient and I concur with the Shift Assessment completed by the Licensed Practical Nurse today this shift.
--- NOTE | 2019-05-02 04:37 | NUR ---
RESTING IN BED WITH EYES CLOSED.
[2019-05-02 08:00] VITALS: BP 103/77
[2019-05-02 08:57] LABS: BASOPHILS 0 % (0-2); EOSINOPHILS 0.8 % (0-7); HEMATOCRIT 47.1 % (42.0-54.0); HEMOGLOBIN 16.1 g/dL (13.5-17.5); IMMATURE GRANULOCYTES 0.6 % (0-5); LYMPHOCYTES 2.7 % (15-50); MCH 33.6 pg (26.0-34.0); MCHC 34.2 g/dL (31.0-37.0); MCV 98.3 fL (80.0-100.0); MONOCYTES 6.5 % (2-11); NEUTROPHILS 89.4 % (40-80); PLATELET COUNT 80 10x3/uL (130-400); RBC 4.79 10x6/uL (4.20-6.10); RDW 13.2 % (11.5-14.5); WBC 15.6 10x3/uL (4.8-10.8)
[2019-05-02 09:34] LABS: ANION GAP 16.1 mmol/L (8-16); CALCIUM 9.1 mg/dL (8.5-10.1); CARBON DIOXIDE 24.7 mmol/L (21.0-32.0); CREATININE - SERUM 1.1 mg/dL (0.6-1.3); POTASSIUM - SERUM 4.8 mmol/L (3.5-5.1)
[2019-05-02 10:53] LABS: HYPOCHROMASIA OCC; PLATELET ESTIMATE DECREASED
--- NOTE | 2019-05-02 16:42 | RHP ---
PATIENT: ED RIVAS MEDICAL RECORD: [id number] ACCOUNT: [id number] LOCATION:[facility]17 : 33 ADMISSION DATE: 04/28/19 REHABILITATION HISTORY AND PHYSICAL EXAMINATION POST ADMISSION PHYSICIAN EXAMINATION POST ADMISSION PHYSICAL EXAMINATION AND HISTORY AND PHYSICAL DATE OF ADMISSION: 04/28/2019. ADMITTING DIAGNOSIS: Chronic illness myopathy. HISTORY OF PRESENT ILLNESS: The patient is a gentleman, who presented secondary to a history of hypertension, COPD, pulmonary fibrosis, obstructive sleep apnea, gout. He presented to the ER on April 10 with complaints of increased shortness of breath, cough, fever and decreased appetite. He had muscle weakness and diarrhea, had been present for about 3-4 days prior to admit. The patient said he had been getting much more short of breath than normal with any type of activity. He had been having some loose stools. The patient was admitted and found to have flu A and received treatment. He was transferred to the ICU on April 14 with his heart rate in the 40s. He desaturated also anytime he was off BiPAP. He was moved out of the ICU and weaned on BiPAP and treatments at that time. Had a CT of his head done during this stay, which showed a large right frontoparietal subdural hematoma with mass effect, but no midline shift. Neurosurgery was consulted, felt like that this was from a fall 4 weeks prior to this. He is going to see him p.r.n. and also as an outpatient. He is currently getting IV Solu-Medrol. He is having to monitor his blood sugars and has been placed on insulin. He has been hyperglycemic. He is on electrolyte protocol. Pain control with acute pain. Decreased activity tolerance, decreased strength, proximal muscle weakness. He has balance deficits, decreased activity tolerance, decreased range of motion, gait disturbance, decreased strength, dyspnea on exertion, and impaired mobility. He has high fall risk and self-care deficits. These are all barriers to his discharge home safely at this time. He has been seen by PT during his stay. Recommended inpatient acute stay. He lives at home with his , was independent with ADLs and mobility prior to this. He is currently set for mod assist for ADLs, mod assist for mobility, and been desaturating on his O2. He and his family would like for him to return home at his prior level of functioning or better. Comorbidities are nddht-yo-xqfrpcv hypoxic respiratory failure, uvjkm-vb-kyaomea congestive heart failure, pulmonary fibrosis, obstructive sleep apnea, need for BiPAP during the stay, qmgmx-vt-qxqubfy hypercapnic and hypoxic respiratory failure. He has had noted subdural hematoma, cough, ex-smoker, benign prostatic hypertrophy, arthritis. He has got vitamin D deficiency, syncope, bradycardia. PAST MEDICAL HISTORY: Significant for syncope. He has got a history of pulmonary fibrosis, gout. PAST SURGICAL HISTORY: Includes knee surgery, foot, arm and extremity surgery. ALLERGIES: No known drug allergies. CURRENT MEDICATIONS: Include prednisone 10 mg daily, he will be on a tapering dose of that. He is on Floranex daily, Lozol 1.25 mg daily, fluoxetine 20 mg daily, vitamin D 2000 units daily. He is on Bactrim 1 tab Thursday, Thursday, HISTORY AND PHYSICAL [id number] ED RIVAS and Thursday. He is on allopurinol 300 mg daily. He is on Atrovent 0.5 mg t.i.d. He is on potassium chloride 20 mEq t.i.d. He is on Singulair 10 mg at bedtime, Pepcid 20 mg b.i.d., Astelin nasal spray daily, budesonide 0.5 mg b.i.d., Brovana 15 mcg b.i.d. and Mucinex D as needed. HABITS: Does have a history of tobacco use. FAMILY HISTORY: Noncontributory. SOCIAL HISTORY: The patient hopes to return back home and get back to his prior level of functioning. REVIEW OF SYSTEMS: GENERAL: Does complain of weakness and fatigue. HEENT: Does complain of cold, cough, and congestion. CARDIOVASCULAR: Denies any chest pain. LUNGS: Does complain of shortness of breath with any type of activity. PHYSICAL EXAMINATION: VITAL SIGNS: Stable. He is afebrile. GENERAL: A well-developed elderly gentleman, in no acute distress upon exam. HEENT: Normocephalic and atraumatic. Mucosa moist. NECK: Supple. No lymphadenopathy. LUNGS: Clear in the upper phan with decreased breath sounds in the bases. HEART: Regular rate and rhythm. He does have a holosystolic murmur. ABDOMEN: Soft, benign, and nondistended. Positive bowel sounds times 4. EXTREMITIES: No clubbing, cyanosis or edema. NEUROLOGIC: He does have some noted weakness. LABORATORY DATA: Pending. ASSESSMENT: This is an 83-year-old gentleman admitted to the rehab with a working diagnosis of critical illness myopathy. The patient has potential to make improvement. We will institute the following multidisciplinary therapies including, but not limited to, physical, occupational, respiratory, speech, nutritional services, prosthetics, and orthotics. Given his complex medical condition and risks for more complications, rehabilitation services cannot be provided at a lower level of care such as a skilled nurse facility. PLAN: 1. Admit to [facility] for an inpatient therapy to include the following disciplines; A. Physical therapy to improve gait, all transfer skills, and bed mobility to modified independent level. B. Occupational therapy to modified independent level. C. Case management to assist with discharge planning and placement options. D. Nutrition to assist with nutritional needs. E. Rehabilitation nursing to assist in monitoring the patient's underlying medical conditions and to assist with any type of bowel or bladder management. 2. The patient's current medications and medical care will be continued. 3. The patient will be placed on standard fall precautions. 4. We will go ahead and continue on his tapering dose of prednisone. 5. I will see him again in the a.m. TRANSINT:[id number] Voice Confirmation ID: [id number] DOCUMENT ID: [id number] HISTORY AND PHYSICAL [id number] ED RIVAS notes whether there has been none or any medical/functional change since admission: - No change since prescreen. IRENA attests patient continues to be appropriate for IRF: - Continues to be appropriate. JACQUELIN LUIS MD at 1642 CC: [id number] DICTATION DATE: 04/29/19 0847 LUNCHROOM SUPERVISOR: 04/29/19 1109 ADM IN [place] [id number] [place] [address]
--- NOTE | 2019-05-02 18:23 | NUR ---
SITTING UP IN BED WATCHING TV. USES URINAL WHEN IN BED. DENIES NEEDS. CALL LIGHT IN REACH
--- NOTE | 2019-05-02 19:25 | NUR ---
PT IS RESTING IN BED FILLING OUT HIS MENU. ALERT AND ORIENTED X 3. DENIES ACUTE PAIN OR DISCOMFORT AT THIS TIME. NO NEEDS VOICED. SR'S ARE UP X 2 IN BED. CALL LIGHT AND BEDSIDE TABLE ARE WITHIN EASY REACH.
--- NOTE | 2019-05-02 21:45 | NUR ---
PT IS RESTING IN BED WITH EYES OPEN. NO NEEDS VOICED.
[2019-05-02 22:21] VITALS: BP 108/57
--- NOTE | 2019-05-03 00:28 | NUR ---
I have reviewed this patient and I concur with the Shift Assessment completed by the Licensed Practical Nurse today this shift.
--- NOTE | 2019-05-03 04:39 | NUR ---
RESTING IN BED WITH EYES CLOSED.
[2019-05-03 08:00] VITALS: BP 119/72
--- NOTE | 2019-05-03 08:00 | NUR ---
SITTING UP IN BED.BREAKFAST GIVEN.CL IN REACH.
--- NOTE | 2019-05-03 19:24 | NUR ---
AWAKE AND ALERT. SITTING IN WHEELCHAIR. ASSISTED TO BED PER HIS REQUEST. TRANSFERS WITH MINIMAL ASSIST. RESPIRATIONS UNLABORED AT REST WITH O2/4L ON PER NASAL CANNULA. NO ACUTE DISTRESS NOTED. CALL LIGHT IN REACH.
[2019-05-03 20:42] VITALS: BP 105/39
--- NOTE | 2019-05-04 00:43 | NUR ---
CONTINUES RESTING IN BED WITH NO DISTRESS NOTED.
--- NOTE | 2019-05-04 05:05 | NUR ---
QUIET HOURS. NO ACUTE CHANGES IN CONDITION THIS SHIFT. O2/4L ON PER NASAL CANNULA. NO ACUTE DISTRESS NOTED.
[2019-05-04 08:00] VITALS: BP 126/79
--- NOTE | 2019-05-04 08:00 | NUR ---
REPORT RECIEVED,REPORT GIVEN.
[2019-05-04 08:58] LABS: BASOPHILS 0.1 % (0-2); EOSINOPHILS 1.6 % (0-7); HEMATOCRIT 47.3 % (42.0-54.0); HEMOGLOBIN 15.9 g/dL (13.5-17.5); IMMATURE GRANULOCYTES 0.3 % (0-5); LYMPHOCYTES 6.2 % (15-50); MCH 33.7 pg (26.0-34.0); MCHC 33.6 g/dL (31.0-37.0); MCV 100.2 fL (80.0-100.0); MEAN PLATELET VOLUME 12.8 fL (7.4-10.4); MONOCYTES 3.7 % (2-11); NEUTROPHILS 88.1 % (40-80); PLATELET COUNT 64 10x3/uL (130-400); RBC 4.72 10x6/uL (4.20-6.10); RDW 13.6 % (11.5-14.5); WBC 12.3 10x3/uL (4.8-10.8)
[2019-05-04 09:07] LABS: ANION GAP 11.8 mmol/L (8-16); CALCIUM 8.9 mg/dL (8.5-10.1); CARBON DIOXIDE 29.6 mmol/L (21.0-32.0); CREATININE - SERUM 1.1 mg/dL (0.6-1.3); POTASSIUM - SERUM 4.4 mmol/L (3.5-5.1)
--- NOTE | 2019-05-04 16:30 | NUR ---
Nutrition Follow-up: Diet: Cardiac PO intake: ~69%; patient reports appetite is "okay," states that he will order Boost on menu if he feels that he needs it. Last BM: 05/01/19. WT: 190# (04/29/19) Meds noted: prednisone. Labs noted: Glu 277(H). Recommend continue current diet. RD following.
--- NOTE | 2019-05-04 20:00 | NUR ---
PATIENT RECEIVED SITTING UP IN BED. ASSESSMENT & VITAL SIGNS DONE. NO C/O PAIN OR DISTRESS. BED LOW. ALARM ON. CALL LIGHT & URINAL WITHIN REACH. WILL CONTINUE TO MONITOR.
[2019-05-04 22:11] VITALS: BP 93/59
--- NOTE | 2019-05-05 03:41 | NUR ---
PATIENT AWAKE. CPAP ON & WORKING. PATIENT TOLERATING IT WELL. BED LOW. ALARM ON. CALL LIGHT & URINAL WITHIN REACH. WILL CONTINUE TO MONITOR.
--- NOTE | 2019-05-05 04:38 | NUR ---
I have reviewed this patient and I concur with the Shift Assessment completed by the Licensed Practical Nurse today this shift.
[2019-05-05 08:43] VITALS: BP 111/71
--- NOTE | 2019-05-05 13:14 | NUR ---
SITTING UP IN WC IN ROOM. USES URINAL OFTEN TO VOID. IS VERY SOB WITH MINIMAL EXERTION. OXYGEN 4L NC IN USE. MIN TO MOD ASST TO TRANSFER. DENIES PAIN. CALL LIGHT IN REACH
--- NOTE | 2019-05-05 17:45 | NUR ---
SITTING UP IN BED EATING SUPPER. OXYGEN IN PLACE. DENIES NEEDS OR C/O. CALL LIGHT IN REACH
--- NOTE | 2019-05-05 19:35 | NUR ---
PATIENT RECEIVED SITTING UP IN BED. ASSESSMENT & VITAL SIGNS DONE. NO C/O PAIN OR DISTRESS. BED LOW. ALARM ON. CALL LIGHT WITHIN REACH. WILL CONTINUE TO MONITOR.
[2019-05-05 22:10] VITALS: BP 108/75
--- NOTE | 2019-05-06 02:56 | NUR ---
I have reviewed this patient and I concur with the Shift Assessment completed by the Licensed Practical Nurse today this shift.
[2019-05-06 07:43] LABS: ANION GAP 8.9 mmol/L (8-16); CALCIUM 8.3 mg/dL (8.5-10.1); CARBON DIOXIDE 29.2 mmol/L (21.0-32.0); CREATININE - SERUM 1.2 mg/dL (0.6-1.3); POTASSIUM - SERUM 4.1 mmol/L (3.5-5.1)
[2019-05-06 07:44] LABS: BASOPHILS 0 % (0-2); HEMATOCRIT 43.4 % (42.0-54.0); HEMOGLOBIN 14.8 g/dL (13.5-17.5); IMMATURE GRANULOCYTES 0.3 % (0-5); LYMPHOCYTES 8.7 % (15-50); MCH 33.6 pg (26.0-34.0); MCHC 34.1 g/dL (31.0-37.0); MCV 98.6 fL (80.0-100.0); RDW 13.5 % (11.5-14.5); WBC 9.3 10x3/uL (4.8-10.8)
[2019-05-06 07:49] LABS: PLATELET COUNT 51 10x3/uL (130-400)
[2019-05-06 08:14] LABS: PLATELET ESTIMATE DECREASED
[2019-05-06 08:25] VITALS: BP 126/61
--- NOTE | 2019-05-06 13:45 | NUR ---
DR DAVE CALLED THIS MORNING AND GAVE ORDER TO HOLD THERAPY TODAY. HIS VIEW OF XRAY SHOWS POSS PNEUMOTHARAX.
--- NOTE | 2019-05-06 14:15 | NUR ---
PATIENT ADMITTED TO REHAB FROM ACUTE FLOOR. DR. LINDSEY IS PATIENT PCP. HE WOULD [facility] FOR HOME HEALTH AT DISCHARGE. HE HAS O2 FROM [facility]. WILL CONTINUE TO FOLLOW WITH PATIENT.
--- NOTE | 2019-05-06 14:17 | NUR ---
CARE TEAM MEETING: PATIENT TENATIVE DISCHARGE DATE IS 05/12/19, FAMILY ATTENDED MEETING.THEIR QUESTIONS AND CONCERNS WERE ADDRESSED. WILL CONTINUE TO FOLLOW WITH PATIENT.
--- NOTE | 2019-05-06 19:30 | NUR ---
PT IS RESTING IN BED WITH EYES OPEN. ALERT AND ORIENTED X 3. DENIES ACUTE PAIN OR DISCOMFORT AT THIS TIME. NO NEEDS VOICED. O2 IS ON @ 4LPM PER NC. NO SOB NOTED. SR'S ARE UP X 2 IN BED. CALL LIGHT AND BEDSIDE TABLE ARE WITHIN EASY REACH.
[2019-05-06 21:50] VITALS: BP 105/61
--- NOTE | 2019-05-06 21:57 | NUR ---
PT RESTING IN BED WITH EYES OPEN. NO NEEDS VOICED.
--- NOTE | 2019-05-07 00:18 | NUR ---
I have reviewed this patient and I concur with the Shift Assessment completed by the Licensed Practical Nurse today this shift.
--- NOTE | 2019-05-07 04:27 | NUR ---
RESTING IN BED WITH EYES OPEN.
[2019-05-07 07:00] VITALS: BP 106/66
--- NOTE | 2019-05-07 07:30 | NUR ---
A/A/OX4. DENIES ANY NEEDS AND NO REQUESTS VOICED. ASSESSMENT COMPLETED AND WILL CONTINUE POC. ASSISTED UP TO BATHROOM WITH GAIT IS UNSTEADY. NO OTHER PROBLEMS NOTED.
--- NOTE | 2019-05-07 11:10 | NUR ---
PT PLACE ON 100% NRB MASK AND INSTRUCTED HE IS TO WEAR AT ALL TIMES EXCEPT TO THERAPY, BATHROOM AND EATING. PT VERBALIZES UNDERSTANDING.
--- NOTE | 2019-05-07 15:10 | NUR ---
I have reviewed this patient and I concur with the Shift Assessment completed by the Licensed Practical Nurse today this shift.
--- NOTE | 2019-05-07 18:06 | NUR ---
PT STATES HE FEELS LIKE HE IS GETTING MORE AIR SINCE STARTING ON THE NRB MASK. NO COMPLAINTS AT PRESENT TIME. SITTING UP IN BED EATING EVENING MEAL.
--- NOTE | 2019-05-07 19:29 | NUR ---
PT RESTING IN WC WITH EYES OPEN. ALERT AND ORIENTED X 3. O2 ON A REBREATHER MASK AT 100% NO SOB NOTED. PT REQUESTED TO GET IN BED AT THIS TIME. TRANSFERRED SELF WITH SBA. NO FURTHER NEEDS VOICED. SR'S ARE UP X 2 IN BED. CALL LIGHT AND BEDSIDE TABLE ARE WITHIN EASY REACH.
[2019-05-07 20:41] VITALS: BP 116/71
--- NOTE | 2019-05-07 22:12 | NUR ---
PT RESTING IN BED WITH EYES CLOSED. NO DISTRESS NOTED.
--- NOTE | 2019-05-08 05:55 | NUR ---
PT RESTING IN BED WITH EYES OPEN. NO NEEDS VOICED.
--- NOTE | 2019-05-08 07:30 | NUR ---
A/A/OX4. DENIES ANY PAIN OR DISCOMFORT AND NO REQUESTS VOICED. 02 ON VIA 100% NRB WITH PULSE OX READING OF 99. SIDERAILS UP X 2, BED IN LOW POSITION AND CALL LIGHT WITHIN REACH. WILL CONTINUE POC.
[2019-05-08 10:08] VITALS: BP 116/80
--- NOTE | 2019-05-08 11:12 | NUR ---
PER ORDER CHRISTIANO SANTA REMOVED AND PLACED BACK ON HF N/C AT 4 L/M. WE ARE TO KEEP SP02 AT 92 OR ABOVE.
--- NOTE | 2019-05-08 13:40 | NUR ---
STATES PT WAS TRYING TO GET IN W/C TO GO TO BATHROOM AND PASSED OUT MOMENTARILY. SAT READING WITH PT A/A/0X4 IS 79-81 WITH RESP RATE 28. PER DR. DAVE, REMAIN ON HF BUT INCREASE TO 12 L/M.
--- NOTE | 2019-05-08 13:54 | NUR ---
RESPIRATIONS MUCH EASIER NOW WITH SPO2 OF 91&. B/P 121/63 P-109 R-22. ORDERS RECEIVED TO TRANSFER PT TO [facility] 2.
[2019-05-08 14:20] LABS: BASOPHILS 0 % (0-2); EOSINOPHILS 0.6 % (0-7); HEMATOCRIT 46.5 % (42.0-54.0); HEMOGLOBIN 15.8 g/dL (13.5-17.5); IMMATURE GRANULOCYTES 0.4 % (0-5); LYMPHOCYTES 5.2 % (15-50); MCH 34.2 pg (26.0-34.0); MCV 100.6 fL (80.0-100.0); MONOCYTES 5.7 % (2-11); NEUTROPHILS 88.1 % (40-80); PLATELET COUNT 53 10x3/uL (130-400); RBC 4.62 10x6/uL (4.20-6.10); RDW 13.9 % (11.5-14.5); WBC 7.9 10x3/uL (4.8-10.8)
--- NOTE | 2019-05-08 14:30 | NUR ---
I have reviewed this patient and I concur with the Shift Assessment completed by the Licensed Practical Nurse today this shift.
[2019-05-08 14:42] LABS: PLATELET ESTIMATE DECREASED
[2019-05-08 14:48] LABS: ALBUMIN 2.6 g/dL (3.4-5.0); ANION GAP 14.7 mmol/L (8-16); BILIRUBIN - TOTAL 1.27 mg/dL (0.2-1.3); CALCIUM 8.7 mg/dL (8.5-10.1); CARBON DIOXIDE 24.3 mmol/L (21.0-32.0); CREATININE - SERUM 1.3 mg/dL (0.6-1.3); MAGNESIUM - SERUM 1.5 mg/dL (1.8-2.4); PHOSPHOROUS 3.6 mg/dL (2.5-4.9); PROTEIN - SERUM 5.3 g/dL (6.4-8.2)
[2019-05-08 14:50] LABS: TROPONIN-I 0.082 ng/mL (0.000-0.060)
--- NOTE | 2019-05-08 15:05 | NUR ---
TRANSFERRED VIA BED TO ROOM 2128. ALL PERSONAL BELONGINGS WITH PT. IV STARTED IN RIGHT AC WITH 20 GAUGE FOR CTA THIS AFTERNOON. REPORT GIVEN TO CALLIE CHAIDEZ RN.
--- NOTE | 2019-05-09 11:51 | NUR ---
DUE TO CHANGE IN MEDICAL CONDITION PATIENT DISCHARGED FROM [facility] AND ADMITTED TO ACUTE FLOOR 05/08/19
== END 2019-05-08 15:01 | disposition short-term general hospital (02) | DRG 91 ==
LOC: D.REHAB 17:33
PROVIDERS: Internal Medicine Pulmonary Disease; ADMIT Emergency Medicine; ATTEND Emergency Medicine
DX: G72.81 Critical illness myopathy (principal); J96.21 Acute and chronic respiratory failure with hypoxia; J96.22 Acute and chronic respiratory failure with hypercapnia; I50.23 Acute on chronic systolic (congestive) heart failure; J93.9 Pneumothorax, unspecified; J44.9 Chronic obstructive pulmonary disease, unspecified; G47.33 Obstructive sleep apnea (adult) (pediatric); S06.5X9D Traumatic subdural hemorrhage with loss of consciousness of unspecified duration, subsequent encounter; N40.0 Benign prostatic hyperplasia without lower urinary tract symptoms; E55.9 Vitamin D deficiency, unspecified; R55 Syncope and collapse; R00.1 Bradycardia, unspecified; I11.0 Hypertensive heart disease with heart failure; R53.81 Other malaise

== ENCOUNTER 2019-05-08 15:13 | Inpatient (IN) | payer MEDICARE, OTHER ==
[~2019-05-08] VITALS: Ht 170.2 cm; Wt 83.7 kg
--- NOTE | 2019-05-08 15:18 | NUR ---
ARRIVE TO ROOM VIA BED FROM REHAB ACCOMPANIED BY NURSE AND SPOUSE. ALERT AND ORIENTED X4. GLUCOSE 419 AND TROPONIN 0.082 CALLED TO [facility]. TAKEN TO CT FOR CTA. CONTINUE ADMISSION PROCESS AND SAFETY PRECAUTIONS.
[2019-05-08 16:53] VITALS: BP 103/53; BMI 28.2
[2019-05-08 17:24] VITALS: BP 103/53
[2019-05-08 18:47] LABS: APTT 31.8 SECONDS (22.8-39.4)
[2019-05-08 19:03] LABS: D-DIMER-QUANTITATIVE 5.82 ug/mLFEU (0.20-0.54)
--- NOTE | 2019-05-08 19:04 | NUR ---
ALERT AND OX4 CALL LIGHT IN REACH AND BED LOCKED I ASSISTED WITH SEVERAL NEEDS AT THIS TIME AND INSTRUCTED PT TO CALL FOR HELP BEFORE -GETTING UP
[2019-05-08 19:07] LABS: CKMB 1.7 U/L (0.0-3.6); CREATINE KINASE 24 UL (21-232)
[2019-05-08 19:08] LABS: TROPONIN-I 0.078 ng/mL (0.000-0.060)
[2019-05-08 19:27] LABS: MAGNESIUM - SERUM 1.4 mg/dL (1.8-2.4)
--- NOTE | 2019-05-08 19:47 | NUR ---
NOTED ORDERS WRITTEN WELL BEFORE MY SHIFT I WILL NOT BE ABLE TO DO 181 EKG REFUSES SCD
[2019-05-08 20:00] VITALS: BP 108/60
[2019-05-09] VITALS: BP 105/61
[2019-05-09 00:49] LABS: CKMB 1.9 U/L (0.0-3.6); CREATINE KINASE 24 UL (21-232)
[2019-05-09 00:52] LABS: TROPONIN-I 0.092 ng/mL (0.000-0.060)
[2019-05-09 04:00] VITALS: BP 112/56
--- NOTE | 2019-05-09 04:52 | NUR ---
I have reviewed this patient and I concur with the Shift Assessment completed by the Licensed Practical Nurse today this shift.
[2019-05-09 06:39] LABS: BASOPHILS 0.2 % (0-2); EOSINOPHILS 4.5 % (0-7); HEMATOCRIT 41.9 % (42.0-54.0); HEMOGLOBIN 14.1 g/dL (13.5-17.5); IMMATURE GRANULOCYTES 0.2 % (0-5); LYMPHOCYTES 13.4 % (15-50); MCH 33.6 pg (26.0-34.0); MCHC 33.7 g/dL (31.0-37.0); MCV 99.8 fL (80.0-100.0); MEAN PLATELET VOLUME 13.7 fL (7.4-10.4); MONOCYTES 12.2 % (2-11); NEUTROPHILS 69.5 % (40-80); PLATELET COUNT 54 10x3/uL (130-400); RDW 13.6 % (11.5-14.5)
[2019-05-09 06:57] LABS: WBC 5.8 10x3/uL (4.8-10.8)
[2019-05-09 07:27] LABS: PLATELET ESTIMATE DECREASED
[2019-05-09 07:45] LABS: ALBUMIN 2.3 g/dL (3.4-5.0); ALKALINE PHOSPHATASE 70 U/L (30-120); BILIRUBIN - TOTAL 0.91 mg/dL (0.2-1.3); CALCIUM 8.5 mg/dL (8.5-10.1); CARBON DIOXIDE 28.6 mmol/L (21.0-32.0); CHLORIDE - SERUM 102 mmol/L (98-107); CKMB 1.7 U/L (0.0-3.6); CREATINE KINASE 18 UL (21-232); CREATININE - SERUM 1.1 mg/dL (0.6-1.3); MAGNESIUM - SERUM 1.7 mg/dL (1.8-2.4); PROTEIN - SERUM 4.7 g/dL (6.4-8.2); SODIUM 136 mmol/L (136-145); UREA NITROGEN 34 mg/dL (7-18); eGFR NON AFRICAN AMERICAN 68 mL/min (90-120)
[2019-05-09 07:48] LABS: ALT (SGPT) 68 U/L (10-68); CALC OSMOLALITY 291 mosm/kg (275-300); GLUCOSE 315 mg/dL (74-106); POTASSIUM - SERUM 4.2 mmol/L (3.5-5.1); TROPONIN-I 0.075 ng/mL (0.000-0.060)
[2019-05-09 08:40] VITALS: Ht 170.2 cm; Wt 83.7 kg
--- NOTE | 2019-05-09 10:31 | NUR ---
NOTIFIED DR. SINCLAIR OF PT'S HEART RATE STAYING BETWEEN 115-140 RUNNING UAF ON MONITOR. NO NEW ORDERS AT THIS TIME.
--- NOTE | 2019-05-09 11:54 | CN ---
PATIENT NAME:ED RIVAS MEDICAL RECORD: [id number] : 33 LOCATION:D.M2 D.2129 ADMIT DATE: 05/08/19 ACCOUNT: [id number] CONSULTING PHYSICIAN: CORKY SINCLAIR MD REFERRING PHYSICIAN: ISIDRO MAYBERRY MD DATE OF CONSULTATION: 05/09/2019 DIAGNOSES: 1. Elevated troponin, non-Q-wave myocardial infarction. 2. Syncope. 3. Shortness of breath. 4. Recent pneumothorax. 5. Bradycardia. 6. Sick sinus syndrome. 7. Chronic obstructive pulmonary disease. 8. Smoking history. HISTORY OF PRESENT ILLNESS: This is a gentleman, who was on rehab unit, had an episode of syncope, became short of breath thereafter. 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 He has had symptomatic bradycardia as of his last acute hospital stay and there was possibility of a pacemaker placement. He has been taken off all AV blocking medications. He has not had any further bradycardia or tachycardia. He is not having any tachyarrhythmias other than PACs. He was not on telemetry when he had the episode of syncope. His troponin is positive. He has not had a history of ischemic heart disease. PHYSICAL EXAMINATION: CONSTITUTIONAL/GENERAL APPEARANCE: Well nourished, well developed, appears stated age. EYES: Lids and conjunctivae noninjected. No discharge. No pallor. ENT: Lips within normal limit. No cyanosis. No pallor. NECK: Carotid arteries, bilateral normal upstroke. No bruits. No thrills. No jugular venous pressure or distention. CERVICAL LYMPH NODES: Nontender. Nonenlarged. THYROID: Not enlarged. No nodules. CARDIOVASCULAR: Precordial exam, nondisplaced. No heaves or pericardial thrills. Rate and rhythm, regular. Heart sounds, normal S1, normal S2. No S3, no gallop, no rub. Systolic murmur, not heard. Diastolic murmur, not heard. RESPIRATORY: Respiratory effort, unlabored. Normal curvature. No thoracic deformity. No chest wall tenderness. Percussion, resonant. Auscultation, clear. No wheezes, no rales, no rhonchi. ABDOMEN: Soft, nondistended, nontender. No abdominal pain, no vomiting and normal appetite. MUSCULOSKELETAL: No joint tenderness, normal gait, normal tone. SKIN: Warm and dry. OVERALL IMPRESSION: Positive troponin, non-Q-wave myocardial infarction. At this time, we will evaluate from the standpoint of ischemic heart disease with cardiac catheterization. Continue monitoring as the need for possible AV blocking medications and need for possible permanent pacemaker. TRANSINT:[id number] Voice Confirmation ID: [id number] DOCUMENT ID: [id number] CONSULT REPORT [id number] ED RIVAS JEFFREY MD at 1154 CC: [id number] DICTATION DATE: 05/09/19 0843 HEEL BUILDER: 05/09/19 1020 ADM IN [facility] [address] [place] [address]
--- NOTE | 2019-05-09 12:00 | NUR ---
WAS GETTING PT UP TO BATHROOM, SET PT UP ON THE SIDE OF THE BED AND PT STATED THAT HE WAS DIZZY, AND INSTRUCTED PT TO SIT THERE FOR A LITTLE BIT. THEN PT FELL BACK IN THE BED AND HIS EYES ROLLED BACK. PAGED FOR SOMEONE TO CALL A RAPID. RAPIED GIOVANY TEAM AT BEDSIDE AT 1203. EKG, CBC CMP, ABGS, CHEST XRAY DONE. DR. SINCLAIR WILL BE TAKING PT TO [facility] TODAY, NOT MOVING HIM TO [facility] AT THIS TIME.
[2019-05-09 12:20] LABS: BASOPHILS 0 % (0-2); EOSINOPHILS 3.9 % (0-7); HEMATOCRIT 44.5 % (42.0-54.0); HEMOGLOBIN 15.1 g/dL (13.5-17.5); IMMATURE GRANULOCYTES 0.3 % (0-5); LYMPHOCYTES 7.9 % (15-50); MCH 33.9 pg (26.0-34.0); MCHC 33.9 g/dL (31.0-37.0); MEAN PLATELET VOLUME 13.1 fL (7.4-10.4); MONOCYTES 12.6 % (2-11); NEUTROPHILS 75.3 % (40-80); PLATELET COUNT 54 10x3/uL (130-400); RBC 4.45 10x6/uL (4.20-6.10); RDW 13.5 % (11.5-14.5); WBC 6.5 10x3/uL (4.8-10.8)
[2019-05-09 12:31] LABS: ANION GAP 12.1 mmol/L (8-16); CALCIUM 8.8 mg/dL (8.5-10.1); CARBON DIOXIDE 25.2 mmol/L (21.0-32.0); CREATININE - SERUM 1.2 mg/dL (0.6-1.3); POTASSIUM - SERUM 4.3 mmol/L (3.5-5.1)
[2019-05-09 12:37] LABS: ALBUMIN 2.4 g/dL (3.4-5.0); BILIRUBIN - TOTAL 0.92 mg/dL (0.2-1.3)
--- NOTE | 2019-05-09 13:13 | NUR ---
GETTING PT READY FOR ADVERTISING CLERK, REMOVED PT'S BOXER AND PT GOT REALLY SOB AND GOT STIFF AND EYES ROLLED BACK. CALLED A RAPID, RAPID REPONSE TEAM ARRIVE AT 1315. 1340 - PT TRANSFERD TO ICU.
--- NOTE | 2019-05-09 15:00 | NUR ---
Bernice contacted regarding patients . Information provided. Instructed to contact [facility] and notify staff that patient is a "Bernice patient" and they will know what to do. [facility] notified, spoke with 1250-Crane Helper from [facility] at bedside. Patinets spouse and son at bedside. 1500-Body released to [facility].
--- NOTE | 2019-05-09 18:17 | MORECARE ---
CASE MANAGEMENT DISCHARGE SUMMARY PATIENT: ED RIVAS UNIT: [id number] ADM DATE: 05/08/19 AGE: 83 : 34 SEX: M ROOM/BED: D.2302 AUTHOR: COREY HUTCHINS PHYSICIAN: REFERRING PHYSICIAN: ISIDRO MAYBERRY MD DATE OF SERVICE: 05/09/19 Discharge Plan Patient Name: ED RIVAS Facility: [facility]:[place] : 1935 Planned Disposition: Anticipated Discharge Date: Discharge Date: 05/09/2019 Expected LOS: Initial Reviewer: [email or web address] Initial Review Date: 05/08/2019 Generated: 05/09/19 7:17 pm Patient Name: ED RIVAS Page [id number] at 1817 All edits/amendments must be made on the electronic document DICTATION DATE: 05/09/191816 PRESSURE DISPATCHER: LUIS ENRIQUE 05/09/191816 RPT#: [id number] DC DATE:05/09/19 STATUS: DIS IN [facility] [address] [place] [address] END OF REPORT
--- NOTE | 2019-05-12 16:48 | EC ---
PATIENT:ED RIVAS DATE OF SERVICE: 05/08/19 SEX: M MEDICAL RECORD: [id number] DATE OF : 33 LOCATION:[facility] D230 AGE OF PATIENT: 83 ADMISSION DATE: 05/08/19 REFERRING PHYSICIAN: INTERPRETING PHYSICIAN: CORKY WHATLEY MD ECHOCARDIOGRAM REPORT ECHO CHARGES 5 ECHO LIMITED Date: 05/09/19 CLINICAL DIAGNOSIS: SYNCOPE ECHOCARDIOGRAPHIC MEASUREMENTS (adult normal given) AC root (d.<3.7cm) 0 cm LV Septum d (<1.2 cm> 0 cm Valve Excursion 0 cm LV Septum (systole) 0 cm Left Atria (s.<4.0cm> 0 cm LVPW d(<1.2cm) 0 cm RV (d.<2.3cm) 0 cm LVPW (sytole) 0 cm LV diastole(<5.6CM) 0 cm MV E-F(>70mm/sec) 0 cm LV systole 0 cm LVOT Diameter 0 cm MV exc.(>10mm) 0 cm Est.ejection fraction (50-75%) % DOPPLER: LVIT 0 cm/sec A 0 cm/sec E 0 cm/sec LA 0 cm/sec RVSP 0 mmHg LVOT 0 cm/sec AOP1/2T 00 m/s Asc. Ao 0 cm/sec RVOT 0 cm/sec RA 0 cm/sec PA 0 cm/sec AV Gradient Peak 0 mmHg AV Mean 0 mmHg AV Area 0 cm MV Gradient Peak 0 mmHg MV Mean 0 mmHg MV Area 0 cm COMMENTS: Fly Worker: [facility] Type Technician: 1 Dr. Whatley TAPE# PACS Pericardial Effusion N DATE OF SERVICE: FINDINGS: 1. Left ventricular chamber size is mildly dilated. Left ventricular systolic function is moderately reduced at 35% to 40%. 2. Left atrium, right atrium, and right ventricular chamber sizes are mildly dilated. 3. Valvular structures have normal structure and motion. 4. Doppler interrogation reveals moderate tricuspid regurgitation, mild mitral regurgitation, no other valvular insufficiency or stenosis. ECHOCARDIOGRAM REPORT [id number] ED RIVAS 5. No evidence of pericardial effusion or left ventricular thrombus. TRANSINT:[id number] Voice Confirmation ID: [id number] DOCUMENT ID: [id number] CORKY WHATLEY MD at 1098 CC: [id number] DICTATION DATE: 05/09/19 1354 TELEMETRY RN: 05/09/19 1424 DIS IN 05/09/19 [facility] [address] [place] [id number]
== END 2019-05-09 15:32 | DRG 189 ==
LOC: D.M2 15:13 → D.ICU 05-09 13:43
PROVIDERS: ADMIT Internal Medicine Nephrology; ATTEND Internal Medicine Nephrology
DX: J96.21 Acute and chronic respiratory failure with hypoxia (principal); I50.23 Acute on chronic systolic (congestive) heart failure; I21.4 Non-ST elevation (NSTEMI) myocardial infarction; J96.22 Acute and chronic respiratory failure with hypercapnia; Z66 Do not resuscitate; R55 Syncope and collapse; J84.10 Pulmonary fibrosis, unspecified; N40.0 Benign prostatic hyperplasia without lower urinary tract symptoms; I10 Essential (primary) hypertension; G47.33 Obstructive sleep apnea (adult) (pediatric); I11.0 Hypertensive heart disease with heart failure; I49.5 Sick sinus syndrome; R53.81 Other malaise; E55.9 Vitamin D deficiency, unspecified; D72.829 Elevated white blood cell count, unspecified; J47.9 Bronchiectasis, uncomplicated; M19.90 Unspecified osteoarthritis, unspecified site; Z99.81 Dependence on supplemental oxygen; I46.9 Cardiac arrest, cause unspecified